=== PATIENT | female | born 2000 | race Caucasian/White ===

== ENCOUNTER 2022-09-03 12:51 | Emergency (ER) | payer MEDICAID, SELFPAY ==
[2022-09-03 13:00] VITALS: TEMP 36.8; BMI 19.8
--- NOTE | 2022-09-03 13:07 | US_ITS ---
WS: [id number] EARLY OBSTETRICAL ULTRASOUND (<14 WEEKS). HISTORY: 12 week gestation, vaginal bleeding, hx of miscarriage COMPARISON: None available. Single intrauterine gestational sac is identified. Cardiac activity at 180 BPM. [place]-rump length john sures 4.8 cm which corresponds to a gestation of 11w4d. Normal-appearing yolk sac and amnion demonstr ated. No subchorionic hemorrhage. No free fluid. Neither ovary identified. Cervix is not well visualized. US/ OB limited [id number] IMPRESSION: 1. Single intrauterine gestation of 11 weeks 4 days with an EDC of 03/31/2023. 2. Limited visualization of the cervix.
--- NOTE | 2022-09-03 13:19 | ED_ITS ---
HPI - General: Chief complaint: Vaginal Bleeding Stated complaint: 12 weeks vaginal bleeding Time Seen by Provider: 09/03/22 13:06 History of Present Illness: Patient presents to the ER with complaints of being approximately 12 weeks and had 1 episode of vaginal bleeding yesterday another episode of vaginal bleeding today. Patient reports cramping in her abdomen and low pelvic region. Patient has had 1 missed period carriage approximate 1/2 years ago. No additional pregnancies. Patient says she was passing blood in the pinkish tinged fluid but denies passing any obvious tissue. Patient has not seen OB yet as she has no insurance. Review of Systems General: Reports: 10 or more systems reviewed and unremarkable except in HPI and below Physical Exam Const: COMMON NORMALS: no acute distress, average body habitus, patient oriented x3, no limitations, healthy appearing, alert and well nourished HENMT: COMMON NORMALS: normocephalic, atraumatic, hearing grossly normal bilaterally, external ears normal, Normal external nose present and moist oral mucous membranes HEAD & SCALP: normocephalic and atraumatic NOSE: Normal external nose present EXTERNAL EAR: Yes external ears normal Neck/C-Spine: COMMON NORMALS: no JVD Chest: COMMONS NORMALS: normal inspection of the chest and normal palpation of entire chest wall Resp: COMMON NORMALS: normal respiratory effort, No retractions, No use of accessory muscles and clear to auscultation bilaterally AUSCULTATION: clear to auscultation bilaterally Cardio: COMMON NORMALS: no JVD, regular rate, regular rhythm, S1 normal heart sound present, S2 normal heart sound present, No gallops present (Cardio), No clicks present (Cardio), No murmurs present (Cardio) and No rub (Cardio) RATE: regular rate RHYTHM: regular rhythm HEART SOUNDS: S1 normal heart sound present and S2 normal heart sound present GI: COMMON NORMALS: Normal to inspection, nondistended, normoactive bowel sounds present, Soft to palpation, non-tender, No hepatosplenomegaly present and no masses PALPATION: Yes Soft to palpation and Yes No hepatosplenomegaly present : COMMON NORMALS: Yes no CVA tenderness BLADDER/KIDNEY EXAM: Yes no CVA tenderness Back/Pelvis: COMMON NORMALS: no CVA tenderness Neuro: COMMON NORMALS: patient oriented x3 SENSORIUM/ORIENTATION: Yes alert Course Vital Signs: Vital signs: Vital Signs Temperature 98.3 F 09/03/22 13:00 Pulse Rate 67 09/03/22 14:07 Respiratory Rate 15 09/03/22 14:07 Blood Pressure 130/75 09/03/22 14:07 Pulse Oximetry 100 09/03/22 14:07 Oxygen Delivery Me thod Room Air 09/03/22 14:07 MDM - OB/Uterine Contractions Medical Decision Making Patient presents to the ER with complaints of vaginal bleeding x2 in the last 24 hours and she is approximately 11 weeks . Patient has had a miscarriage in the past. Patient was evaluated lab work was benign OB ultrasound showed a heart rate of 180 bpm and a single EEG intrauterine gestation of 11 weeks and 4 days. Patient had a quantitative hCG of approximately 102,000. Patient will be referred to OB for follow-up and repeat quant. Patient will be discharged home Differential Diagnosis Unlikely normal delivery at term, hemorrhage, -induced hypertension, premature labor, pre-eclampsia or eclampsia Medical Records I reviewed the patient's medical records. Lab Data I reviewed the patient's lab results. 09/03/22 14:00 09/03/22 14:00 Radiology Impressions Obstetrics Ultrasound 09/03/22 13:07 IMPRESSION: 1. Single intrauterine gestation of 11 weeks 4 days with an EDC of 03/31/2023. 2. Limited visualization of the cervix. Laboratory Results WBC 10.9 10^3/uL (4.0-10.0) H 09/03/22 14:00 RBC 3.84 10^6/uL (4.1-5.3) L 09/03/22 14:00 Hgb 12.6 g/dL (11.5-15.3) 09/03/22 14:00 Hct 37.2 % (37.0-47.0) 09/03/22 14:00 MCV 96.9 fl (81-99) 09/03/22 14:00 MCH 32.8 pg (28.0-34.0) 09/03/22 14:00 MCHC 33.9 g/dL (30.0-36.0) 09/03/22 14:00 RDW 11.9 % (12.1-15.1) L 09/03/22 14:00 Plt Count 239 10^3/cmm (130-400) 09/03/22 14:00 MPV 9.4 fL (7.4-10.4) 09/03/22 14:00 Neut % (Auto) 69.7 % 09/03/22 14:00 Lymph % (Auto) 22.1 % 09/03/22 14:00 [place] % (Auto) 6.6 % 09/03/22 14:00 Eos % (Auto) 0.6 % 09/03/22 14:00 Baso % (Auto) 0.4 % 09/03/22 14:00 Neut # (Auto) 7.56 10^3/uL (1.8-7.7) 09/03/22 14:00 Lymph # (Auto) 2.4 10^3/uL (0.8-4.8) 09/03/22 14:00 [place] # (Auto) 0.7 10^3/uL (0.2-0.9) 09/03/22 14:00 Eos # (Auto) 0.1 10^3/uL (0.0-0.8) 09/03/22 14:00 Baso # (Auto) 0.0 10^3/uL (0.0-0.1) 09/03/22 14:00 Nucleated RBC % (auto) 0 % 09/03/22 14:00 Nucleated RBCs # 0.0 /100WBC 09/03/22 14:00 Sodium 136 mmol/L (136-145) 09/03/22 14:00 Chloride 104 mmol/L (98-107) 09/03/22 14:00 Anion Gap 16.4 (5-19) 09/03/22 14:00 BUN 7 mg/dL (6-20) 09/03/22 14:00 Glucose 75 mg/dL (65-115) 09/03/22 14:00 Total Bilirubin 0.3 mg/dL (0.15-1.2) 09/03/22 14:00 AST 12 U/L (0-32) 09/03/22 14:00 ALT 8 U/L (0-33) 09/03/22 14:00 Alkaline Phosphatase 45 U/L (35-105) 09/03/22 14:00 Albumin 3.7 g/dL (3.5-5.2) 09/03/22 14:00 Globulin 2.6 g/dL (1.3-4.6) 09/03/22 14:00 HCG, Qual Positive (Negative) H 09/03/22 14:00 Ser , Semi-Qnt 350954.00 mIU/mL 09/03/22 14:00 Blood Type B Positive 09/03/22 14:00 Rho(D) Type Positive 09/03/22 14:00 Discharge Plan Discharge Patient Disposition: Home Clinical Impression: Vaginal bleeding, First trimester Condition: Stable Discharge Orders: Discharge ED (Routine); Ordered 09/03/22 Ordered By: Damian Grossman Patient Instructions: at 11 to 14 Weeks (ED) Activity Restrictions/Additional Instructions: He had been referred to case management for referral to [facility] [facility]. They should be calling you within the next several days. If not please feel free to call back if your bleeding gets worse or continues please feel free to return to the ER for further evaluation and treatment. Coding Level of Care Code ED Academic Support Coordinator for Enma Manuel
[2022-09-03 14:07] VITALS: BP 130/75; PULSE 67; RESP 15; O2SAT 100
[2022-09-03 14:11] LABS: Basophils % 0.4 %; Eosinophils # 0.1 10^3/uL (0.0-0.8); Eosinophils % 0.6 %; Hematocrit 37.2 % (37.0-47.0); Hemoglobin 12.6 g/dL (11.5-15.3); Lymphocytes # 2.4 10^3/uL (0.8-4.8); Lymphocytes % 22.1 %; Mean Corpuscular HGB Conc 33.9 g/dL (30.0-36.0); Mean Corpuscular Hemoglobin 32.8 pg (28.0-34.0); Mean Corpuscular Volume 96.9 fl (81-99); Mean Platelet Volume 9.4 fL (7.4-10.4); Monocytes # 0.7 10^3/uL (0.2-0.9); Monocytes % 6.6 %; Neutrophils # 7.56 10^3/uL (1.8-7.7); Neutrophils % 69.7 %; Nucleated Red Blood Cells % 0 %; Platelet Count 239 10^3/cmm (130-400); Red Blood Count 3.84 10^6/uL (4.1-5.3); Red Cell Distribution Width 11.9 % (12.1-15.1); White Blood Count 10.9 10^3/uL (4.0-10.0)
[2022-09-03 14:30] LABS: HCG, Serum Qual Positive (Negative)
[2022-09-03 14:45] LABS: Alanine Aminotransferase 8 U/L (0-33); Albumin Level 3.7 g/dL (3.5-5.2); Alkaline Phosphatase 45 U/L (35-105); Anion Gap 16.4 (5-19); Aspartate Amino Transferase 12 U/L (0-32); Blood Urea Nitrogen 7 mg/dL (6-20); Calcium 8.3 mg/dL (8.5-10.5); Carbon Dioxide 19 mmol/L (22-29); Chloride 104 mmol/L (98-107); Globulin 2.6 g/dL (1.3-4.6); Glomerular Filtration Rate 278.2 mL/min (90-130); Glucose 75 mg/dL (65-115); Osmolality Calculated 279 mOsm/kg (285-295); Potassium 3.4 mmol/L (3.5-5.1); Sodium 136 mmol/L (136-145); Total Bilirubin 0.3 mg/dL (0.15-1.2); Total Protein 6.3 g/dL (6.6-8.7)
--- NOTE | 2022-09-04 11:00 | DCPLANNER ---
Addendum entered by Jenifer Hinds 09/14/22 11:11: Patient had a follow up appointment scheduled with [facility] - patient did attend appointment. Original Note: manager concrete had message to schedule a follow up appointment for patient with DIRECTOR MEDICAL WRITING. manager concrete sent patients information to the front office staff at [facility]. Patients information will be printed and reviewed. Clinic will call patient with appointment information.
== END 2022-09-03 16:03 | disposition home or self-care (01) ==
PROVIDERS: Emergency Provider Emergency Medicine
DX: O20.9 Hemorrhage in early pregnancy, unspecified (principal); Z3A.11 11 weeks gestation of pregnancy
CPT/HCPCS: 36415; 76815; 80053; 84702; 84703; 85025; 86900; 99284

== ENCOUNTER → 2022-09-27 16:00 | Outpatient (BNVA) | payer MEDICAID, SELFPAY | PROVIDERS: Visit Provider Obstetrics & Gynecology | DX: Z34.00 Encounter for supervision of normal first pregnancy, unspecified trimester (principal); Z3A.00 Weeks of gestation of pregnancy not specified | CPT/HCPCS: 80307; 84315; 85027; 86592; 86762; 86803; 86850; 86900; 87086; 87340; 87806 ==

== ENCOUNTER → 2022-11-16 14:30 | Outpatient (BNVA) | payer MEDICAID, SELFPAY | PROVIDERS: Visit Provider Obstetrics & Gynecology | DX: Z34.92 Encounter for supervision of normal pregnancy, unspecified, second trimester (principal); Z3A.21 21 weeks gestation of pregnancy | CPT/HCPCS: 76805 ==

== ENCOUNTER → 2023-01-12 13:18 | Outpatient (BNVA) | payer MEDICAID, SELFPAY | PROVIDERS: Visit Provider Obstetrics & Gynecology | DX: Z34.00 Encounter for supervision of normal first pregnancy, unspecified trimester (principal); Z3A.00 Weeks of gestation of pregnancy not specified | CPT/HCPCS: 82950; 84315; 85025 ==

== ENCOUNTER → 2023-01-20 14:23 | Outpatient (BNVA) | payer MEDICAID, SELFPAY | PROVIDERS: Visit Provider Obstetrics & Gynecology | DX: Z34.93 Encounter for supervision of normal pregnancy, unspecified, third trimester (principal); Z3A.30 30 weeks gestation of pregnancy | CPT/HCPCS: 76816 ==